=== PATIENT | female | born 1990 | race Caucasian/White ===

== ENCOUNTER 2023-12-11 14:30 | Outpatient (OUT) | payer BC, SELFPAY ==
--- NOTE | 2023-12-11 | MR_ITS ---
[address] [address] Patient Name: MARY ACOSTA MRN: [id number] date: 1990 Sex: F Assigned Patient Location: MRI Current Patient Location: Accession/Order Number: [id number] Exam Date: 12/11/2023 14:49 Report Date: 12/14/2023 06:45 At the request of: SARAH PROCTOR Procedure: MR angio head wo/w con EXAMINATION: MR angio head wo/w con HISTORY: Vertigo, central, orthostatic hypotension, syncope COMPARISON: No relevant comparison available. TECHNIQUE: MR angiography was performed in the usual manner. Multiplanar reconstructed 2D and 3D images of the cerebral arteries were created and interpreted. FINDINGS: INTERNAL CAROTIDS: No visible stenosis or aneurysm. ANTERIOR CEREBRALS: No visible stenosis or aneurysm. MIDDLE CEREBRALS: No visible stenosis or aneurysm. POSTERIOR CEREBRALS: No visible stenosis or aneurysm. BASILAR: No visible stenosis or aneurysm. VERTEBRALS: No visible stenosis or aneurysm. OTHER: Negative with no evidence of a vascular malformation. CEREBRUM: No edema, hemorrhage, mass, acute infarction, or inappropriate atrophy. CEREBELLUM: Stable 12 x 11 x 11 mm slightly lobular lesion within superior medial aspect of right cerebellum which demonstrates slightly increased T2 signal compared to surrounding tissue. No appreciable early enhancement. BRAINSTEM: No edema, hemorrhage, mass, acute infarction, or inappropriate atrophy. CSF SPACES: Ventricles, cisterns, and sulci are appropriate for age. No hydrocephalus, subarachnoid hemorrhage, or mass. SKULL: No mass or other significant visible lesion. SINUSES: Limited views demonstrate no significant mucosal thickening or fluid. ORBITS: Limited views are unremarkable. OTHER: Negative. MR/MR angio head wo/w con IMPRESSION: 1. Stable nonspecific 12 mm mass within medial aspect of right cerebellum. Neoplasm cannot be excluded. No new findings. 2. Normal CT angiography of the brain. Electronically authenticated by: SUZANNE VIDAL Date: 12/14/2023 06:45
== END 2023-12-11 14:31 | disposition home or self-care (01) ==
PROVIDERS: PCP Nurse Practitioner Family; Visit Provider Nurse Practitioner Family
DX: H81.4 Vertigo of central origin (principal); I95.1 Orthostatic hypotension; G93.9 Disorder of brain, unspecified
CPT/HCPCS: 70546; A9575

== ENCOUNTER 2024-01-21 08:06 | Outpatient (OUT) | payer BC, SELFPAY ==
--- OUTSIDE RECORDS SUMMARY | 2024-01-21 08:13 | XMS_ITS | CCD ---
Author Organization [facility] Care Team Providers Care Plunger Machine Operator Name Role Phone Betty Crawford DO Primary Care Provider RALPH ORTIZ Admitting UnavailBETTY Dejesus Primary Care Unavailable BETTY CRAWFORD Primary Care Unavailable RALPH ORTIZ Attending UnavailRALPH Resendez Referring Unavailgalen CRAWFORD BETTY B Primary Care Unavailable RALPH ORTIZ Attending UnavailRALPH Resendez Referring Unavailgalen CRAWFORD, DR HERNÁNDEZ Consulting Unavailable TATIANNA, DR JOSE LUIS Paul Primary Care Unavailable YVETTE, DR HERNÁNDEZ Admitting Unavailable YVETTE, DR HERNÁNDEZ Attending Unavailable YOUNG, DR RAFAEL Osuna Consulting Unavailable MISC, DR RODRIGUEZ Attending Unavailable MISC, DR RODRIGUEZ Consulting Unavailable TATIANNA, DR JOSE LUIS Paul Primary Care Unavailable MISC, DR RODRIGUEZ Admitting Unavailable LIVIA MATTA Consulting Unavailable YVETTE BETTY B Primary Care Unavailable LUISA GARCIA Referring Unavailable LUISA GARCIA Attending Unavailable QUINCY العراقي Attending Unavailable YVETTE BETTY B Primary Care Unavailable MAEN CACERESSON Referring Unavailable CACERESMANETATO Referring Unavailable CACERESMANETATO Referring Unavailable MANE CACERESSON Attending Unavailable TATO CACERES Attending Unavailable YVETTE BETTY B Primary Care Unavailable RALPH ORTIZ Attending UnavailSarah Dupree Referring Unavailable Shar Mendoza II Attending Unavaila ble Shar Mendoza II Admitting Unavaila ble NO FAMILY, PHYSICIAN Primary Care Unavailable SARAH VENTURA Attending Unavailable SARAH VENTURA Referring Unavailable SARAH VENTURA Attending Unavailable DEBRA GRIFFIN Attending Unavailable JOSE LUIS CAMPUZANO Primary Care Unavailable Allergies Allergy Classification Reported Allergen(s) Allergy Type Date of Onset Reaction(s) Facility (1 source) Pollen; Translations: [POLLEN EXTRACTS] Propensity to adverse reactions to drug (disorder) 6 [facility] Repository (1 source) RAGWEED; Translations: [RAGWEED] Propensity to adverse reactions to drug (disorder) 6 [facility] Repository (1 source) ALLERGIES NOT ON FILE; Translations: [ALLERGIES NOT ON FILE] Propensity to adverse reactions (disorder) [facility] Repository Medications Current Medications Medication Drug Class(es) Dates Sig (Normalized) Sig (Original) cetirizine hydrochloride 10 mg oral tablet (1 source) Histamine-1 Receptor Antagonist Start: 07-21-2022 take 1 tablet by mouth once daily Cetirizine (Zyrtec) 10 mg Tablet Active 10 MG PO Daily July 21, 2022 1:00am meclizine hydrochloride 25 mg oral tablet (1 source) Antiemetic Start: 07-21-2022 Meclizine Active 12.5 MG PO As Directed July 21, 2022 1:00am Multivitamin (Multiple Vitamin) Tablet (1 source) Start: 08-11-2022 take 1 tablet by mouth once daily Multivitamin (Multiple Vitamin) Tablet Active 1 TAB PO Daily August 11, 2022 1:00am Problems Problem Classification Problem Date Documented Da te Episodic/Chronic Other circulatory disease (2 sources) Orthostatic hypotension; Translations: [Orthostatic hypotension] Onset: 12-13-2023 Episodic Other nervous system disorders (3 sources) Disorder of brain, unspecified; Translations: [Disorder of brain, unspecified] Onset: 08-11-2022 Chronic Other nervous system disorders (1 source) Cerebellar disorder; Translations: [Disorder of brain, unspecified] 08-11-2022 Chronic Other nutritional; endocrine; and metabolic disorders (2 sources) Body mass index (BMI) 40.0-44.9, adult; Translations: [Body mass index (BMI) 40.0-44.9, adult (Multi)] Onset: 12-13-2023 Chronic Other screening for suspected conditions (not mental disorders or infectious disease) (4 sources) Other abnormal findings on diagnostic imaging of central nervous system; Translations: [OTH ABNORMAL FIND DX 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] Onset: 07-14-2022 Episodic Residual codes; unclassified (2 sources) Other specified health status; Translations: [Other specified health status] Onset: 12-13-2023 Episodic Syncope (10 sources) Syncope and collapse; Translations: [Syncope and collapse] Onset: 02-08-2022 Episodic Results Test Name Value Interpretation Reference Range Facil ity Follow-Upon 11-27-2022 Follow-Up [id number] Mary Bashir 1990 F Date Provider Department Center 11/27/2022 Asad-TATO CACERES ONC [facility] Family History Problem Relation Age of Onset Diabetes Father Heart disease Father Family Status - Relation Status Age at Father Level of Service:[id number] MD OFFICE/OUTPATIENT ESTABLISHED LOW MDM 20-29 MIN Reason for Visit and Comments: Follow-up [336704] - MRI review Normal [facility] MR BRAIN W AND WO CONTRASTon 10-12-2022 MR BRAIN W AND WO CONTRAST MR BRAIN W AND WO CONTRAST 10/12/2022 11:19 AM CLINICAL INDICATIONS: Brain lesion, follow-up assessment, PROTOCOL: Routine multiplanar multisequence MRI of the brain prior to and following the uncomplicated administration 20 mL ProHance intravenous contrast. COMPARISON: 07/14/2022 FINDINGS: Unchanged size of 1.1 cm nonenhancing right cerebellar lesion, trace associated susceptibility/seque lae of prior hemorrhage, relative T1 hypointensity and T2 hyperintensity. No acute ischemia, no ventricular outflow obstruction. No acute intracranial hemorrhage. MR spectroscopy dictated separately. IMPRESSION: Unchanged nonenhancing right cerebellar observation, given relative temporal stability, favor sequelae of prior brain parenchymal injury [possibly sequelae of demyelination/clinic ally isolated versus radiologically isolated syndrome]. MR spectroscopy dictated separately. Electronically signed: Levy Mishra. Normal [facility] MR SPECTROSCOPYon 10-12-2022 MR SPECTROSCOPY MR SPECTROSCOPY 10/12/2022 11:23 AM CLINICAL INDICATIONS: Brain lesion, indeterminant, follow-up assessment. PROTOCOL: Planar intermediate TE spectroscopy. COMPARISON: None. FINDINGS: Intermediate [144 ms] and short [35 ms] TE multi voxel planar spectroscopy. No particularly proliferative pattern of metabolites [lesion corresponds to voxel 5, control voxel 2, 4, 8]. IMPRESSION: No proliferative pattern of metabolites to suggest aggressive neoplastic process. Electronically signed: Levy Mishra. Normal [facility] Orders Onlyon 09-06-2022 Orders Only [id number] Mary Bashir 1990 F Date Provider Department [place] 09/06/2022 TATO POON ONC [facility] Family History Problem Relation Age of Onset Diabetes Father Heart disease Father Family Status - Relation Status Age at Father Normal [facility] Office Visiton 09-05-2022 Follow-up visit [id number] Mary Bashir 1990 F Date Provider Department [place] 09/05/2022 TATO POON ONC [facility] Family History Problem Relation Age of Onset Diabetes Father Heart disease Father Family Status - Relation Status Age at Father Level of Service:[id number] MD OFFICE/OUTPATIENT NEW LOW MDM 30-44 MINUTES Reason for Visit and Comments: 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 Follow-up abnormal prior imaging. ICD-10: Dizziness Comparison: Brain MR 04/05/2022. Technique: Multiplanar T1-weighted, axial FLAIR, and susceptibility images were obtained without intravenous contrast. Following intravenous gadolinium-based contrast administration, axial T2-weighted, diffusion, and T1-weighted images (in multiple planes) were obtained. Contrast: 20 mL Dotarem Findings: No change in the rounded 10 x 10 mm diameter focus of high T2 and T2/FLAIR signal within the medial right cerebellar hemisphere which is not clearly visible on the T1-weighted sequence. This shows no evidence for enhancement. No restricted diffusion. No other or similar-appearing lesions are seen within the supratentorial aspect of the brain. No visualized white matter lesions on T2/FLAIR. There is no significant mass effect, midline shift, or evidence of intracranial hemorrhage. The ventricles are proportionate to the cerebral sulci. Normal major vascular intracranial flow-voids. Postcontrast images demonstrate no abnormal intracranial enhancement. No abnormality of the skull marrow signal. The visualized portions of paranasal sinuses, and mastoid air cells are relatively clear. The orbits are grossly unremarkable. Impression: Stable, rounded, T2 and T2/FLAIR hyperintense signal focus within the medial right cerebellar hemisphere. No associated restricted diffusion or enhancement. The finding remains nonspecific, with the differential including a low-grade neoplastic process such as astrocytoma. Sequelae of other toxic/metabolic, infectious or ischemic etiologies are also considered. There is no significant mass effect or surrounding edema. No additional supratentorial lesions to suggest a more generalized demyelinating process, although not entirely excluded. Electronically authenticated by: LIVIA MATTA Date: 2022-07-14 15:00 Normal [facility] MRI BRAIN WO CONon MRI BRAIN WO CON EXAMINATION: MRI BRAIN WO CON, 04/05/2022 10:34 AM EDT HISTORY: Syncope and collapse COMPARISON: None. TECHNIQUE: MRI of the brain was performed without IV contrast. FINDINGS: CEREBRUM: No edema, hemorrhage, mass, acute infarction, or inappropriate atrophy. CEREBELLUM: Thin, discoid 13 mm diameter area of increased T2 signal, which is isodense on T1, within medial aspect of right cerebellum. No hemorrhage, acute infarction, or inappropriate atrophy. BRAINSTEM: No edema, hemorrhage, mass, acute infarction, or inappropriate atrophy. CSF SPACES: Ventricles, cisterns, and sulci are appropriate for age. No hydrocephalus, subarachnoid hemorrhage, or mass. SKULL: No mass or other significant visible lesion. SINUSES: Limited views demonstrate no significant mucosal thickening or fluid. ORBITS: Limited views are unremarkable. OTHER: Negative. IMPRESSION: 1. Nonspecific 13 mm diameter by approximately 4 mm thick area within the right cerebellum demonstrating increased T2 signal of uncertain etiology. This area is isodense/not visible on T1 sequences. Follow-up MRI brain with contrast enhancement is recommended to evaluate enhancement characteristics. Electronically authenticated by: RAFAEL VIDAL Date: 2022-04-05 18:23 Normal [facility] Encounters Encounter Date Encounter Type Care Provider Facility Start: 12-13-2023 End: 12-13-2023 ambulatory [facility] Ambulatory Start: 11-27-2023 End: 11-27-2023 ambulatory SARAH GILLMOR Not Available Start: 10-29-2023 End: 10-29-2023 ambulatory SARAH GILLMOR Not Available Start: 10-25-2023 End: 10-25-2023 ambulatory SARAH GILLMOR Not Available Start: 10-11-2023 End: 10-11-2023 ambulatory SARAH GILLMOR Not Available Start: 08-31-2023 ambulatory BETTY B YVETTESACHIN nichole Ambulatory Start: 11-27-2022 End: 11-27-2022 ambulatory TATO CACERES [facility] Start: 10-12-2022 End: 10-13-2022 ambulatory TATO CACERES [facility] Start: 09-05-2022 ambulatory TATO CACERES [facility] Start: 08-18-2022 End: 08-19-2022 [facility] Start: 08-11-2022 End: 08-12-2022 ambulatory Sarah Ventura Facility:[facility] Start: 08-02-2022 ambulatory QUINCY العراقي Cande nichole [facility] Start: 07-21-2022 End: 07-22-2022 ambulatory [facility] Start: 07-14-2022 End: 07-15-[address] DOCTOR REYEZ Facility:[facility] Start: 04-05-2022 End: 04-06-[address] BETTY CRAWFORD Facility:[facility] Start: 02-20-2022 End: [facility]: 02-10-2022 End: 02-14-2022 ambulatory RALPH WILLIAM [facility] Start: 02-09-2022 End: 02-10-2022 ambulatory [facility] Start: 01-27-2022 Transcribe Orders Betty harris DO Work Phone: [facility] Comment on above: Syncope and collapse (Primary Dx) Procedures Date Procedure Procedure Detail Performing Clinician Start: 11-27-2022 Follow-up visit Follow-up TATO BRIGGS Plan of Treatment Date Care Activity Detail Author Start: 02-23-2022 Influenza vaccination Sequential Influenza Vaccine (#1) [facility] Start: 02-08-2022 End: 02-08-2022 Patient encounter procedure 02/08/2022 Office Visit Cardiology Betty Crawford DO [address] [place] [address] Ralph Ortiz MD [address] [place] [id number] (Iksa) [facility] Start: 2010 Hepatitis C screening Hepatitis C Screening [facility] Start: 09-04-2007 HIV screening HIV Screening [facility] Start: 2004 Depression screening using PHQ-9 (Patient Health Questionnaire 9) score Depression Screening (PHQ-2/9) [facility] Start: 09-04-1995 History and physical examination, annual for health maintenance Wellness Visit [facility] Start: 03-06-1993 COVID-19 Vaccine (#1) COVID-19 Vaccine (#1) [facility] Start: 1992 Screening for malignant neoplasm of cervix Pap Smear [facility] Start: 1992 Tetanus vaccination Tetanus: Every 10yrs [facility] Payers Date Payer Category Payer Self-pay [id number] 2015 Unknown [employer]HER [employer]/JESUS/HMO/PPO [id number] 2015-Present [phone] [address] [place] [address] [id number] 1992 Unknown [id number] [id number] 1992 Unknown [id number] [id number] 1992 Unknown [id number] [id number] 1992 Unknown [id number] 2.16.840.1.855363.3.579.2.593 1992 Unknown [id number] 2.16.840.1.922099.3.579.2.593 1992 Unknown [id number] 2.16.840.1.915173.3.579.2.903 1992 Unknown [id number] 2.16.840.1.044275.3.579.2.903 1992 Unknown [id number] 2.16.840.1.925434.3.579.2.903 1992 Unknown [id number] 2.16.840.1.257719.3.579.2.9 1992 Unknown [id number] 2.16.840.1.972583.3.579.2.9 1992 Unknown [id number] 2.16.840.1.771111.3.579.2.1259 1992 Unknown [id number] 2.16.840.1.654215.3.579.2.9 1992 Unknown [id number] 2.16.840.1.114983.3.579.2.1244 1959 Unknown [id number] Unknown [id number] [id number] Social History Date Type Detail Facility Tobacco smoking status [facility] Tobacco smoking consumption unknown [facility] Start: 1990 Sex Assigned At Not on file [facility] Start: 1990 Sex Assigned At Female F [facility] Progress note 11-27-2022 Note Date & Type Note Facility 11-27-2022 Note In person visit Chief complaint: dizziness/? hypotension CAHTO: 32 y/o woman seen before for dizzy speels and passing out from dizzy spels, no diagnosis. No headaches, been 20-30 times in the past year. Goind on for about 1-2 years, 1-2 times per month. Usually up and active when onset occurs, but mostly occurs when giving kids a bath or taking a bath, once whilst laying in bed, whilst working in garden, mostl bathroom, once laying, once sitting, once in garden- going from outsie to inside. Most of th etime, when she feels it coming, can feel heart racing, and feels that room is shifitng form side to side, lays down or sits down. MRI of brain to look at cerebellum region. Dr. 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 No changes in blood pressure. 30 day holter Ekg Tilt table Echo Eeg Saw neurology and cardiology Dr. Rafael Ovalles with [facility] cardiology - [place] and Lyn[facility]; As above No past medical history on file. Past Surgical History: Procedure Laterality Date KNEE SURGERY Right Current Outpatient Medications on File Prior to Visit Medication Sig Dispense Refill cetirizine (ZyrTEC) 10 mg tablet Take 10 mg by mouth in the morning. etonogestrel-eluting contraceptive (Nexplanon) 68 mg contraceptive implant 1 Device by implant route 1 (one) time. ibuprofen 800 mg tablet Take 800 mg by mouth every 8 (eight) hours if needed. meclizine (Antivert) 25 mg tablet TAKE 1/2 TO 1 TABLET BY MOUTH DAILY NEEDED multivitamin tablet Take 1 tablet by mouth in the morning. No current facility-administered medications on file prior to visit. Allergies Allergen Reactions Pollen Extracts Ragweed Exam; Vss Cooperative Nc/at Well developed Moderately obese Awake, alert, orientd cN intact Speech, cognition intact Motor intact Sensory intact Ambulatory Coordination intact Reflexes - deferred Review of films; I reviewed her films - there is no clear abnormality to explain her symptoms on her imaging studies There is aT2/Fllair abnormality in the right posterior fossa - this does not enhance, there is no clear evidence of edema - radiology felt this may be related to an older injury I would recommend repeat imaging in about 2 years - I do not think this lesion represents tumor - which is the same as Dr. Mishra wrote related to the spectroscopy report A/P: 32 y/o female has symptoms as described above in the CAHTO. It is undlear if this might be related to some vascular insufficiency or possibly seizure disorder. I do not believe that her symptoms are related to the minor abnormality seen on her MRI in the right cerebellum. I think she could still be having seizure or possibly vertebrobasilar insufficiency It sounds like her cardiac work-up was pretty extensive and did not show anything clear FU with me PRN or if she gets repeat imaging and wants me to review it Tato Caceres MD [facility] Progress note 09-05-2022 Note Date & Type Note Facility 09-05-2022 Note In person visit Chief complaint: brain abnormality on MRI CAHTO: 32 y/o female- referred for brain abnormality (T2 hyperintensity) on MRI - no personal history of cancer She was sent to the cancer center at [facility] - she was referred there for PET/CT of head. Dr. Crawford who is her neurologist wanted the PET head iamging. She was subsequently referred to me. She had MRI sometime last year = then in the past few months she had CT w/wout contrast. She says that she was told there is something in her right cerebellum. She gets random dizzy spells. She says they just seem to come on at any time. She can usually tell when they are coming on so that she can sit down. She will sometimes pass out due to the dizzy spells. She says intially there was concern that it might be her heart - she was sent for cardiac evaluation - echo, stress test, ekg, blood word and 30 day holter monitor - that was all negative. She has some headaches - she does have two children at home - 6/4 - both girls. Overall she does not feel more clumsy. She says realistically she feels normal most of the time. ROS: As above When the spells do happen - she does feel somewhat tired and lethargic after the spells She had EEG - says that was OK - about 30-60 minute EEG Had Tilt table test too Was told that she has some central vertigo too History reviewed. No pertinent past medical history. Past Surgical History: Procedure Laterality Date KNEE SURGERY Right Current Outpatient Medications on File Prior to Visit Medication Sig Dispense Refill cetirizine (ZyrTEC) 10 mg tablet Take 10 mg by mouth in the morning. etonogestrel-eluting contraceptive (Nexplanon) 68 mg contraceptive implant 1 Device by implant route 1 (one) time. ibuprofen 800 mg tablet Take 800 mg by mouth every 8 (eight) hours if needed. meclizine (Antivert) 25 mg tablet TAKE 1/2 TO 1 TABLET BY MOUTH DAILY NEEDED multivitamin tablet Take 1 tablet by mouth in the morning. No current facility-administered medications on file prior to visit. Allergies Allergen Reactions Pollen Extracts Ragweed Exam; BP 123/73 (BP Location: Left arm, Patient Position: Sitting) Pulse 95 Temp 37.1 ???C (98.7 ???F) Ht 1.702 m (5' 7 ) Wt 135 kg (297 lb) SpO2 99% BMI 46.52 kg/m??? Age appropriate yes family present - mother NC/AT Well developed, well nourished Mood/affect normal Awake, alert, oriented CN intact Speech intact Cognition intact Motor: normal - B UE and LE Sensory: intact to LT throughout Ambulatory Station intact Coordination intact Reflexes: - intact Review of films; I personally reviewed her films - she had a photo no her phone - the films themselves were not yet loaded into pacs There is a T2 abnormality along the medial cerebellum - just lateral to the boundary of the 4th ventricle There is no clearly associated cerebral edema There is no other lesion clearly identified A/P: 32 y/o woman - referred because her imaging showed a T2 hyperintensity in the medial cerebellum. There are no other clearly identified lesions. She does not have any personal history of cancer. I explained to her that I would not recommend biopsy of the lesion at this point. I would recommend repeat MRI w/wout contrast -a bout 3-4 months after the last MRI (which would be about 1-2 months from now). Clinically she seems about stable over time - I will order her the new MRI brain w/wout contrast and I will see her back after it is completed to review the new film and to compare it to her prior imaging. I can see her back sooner if there are any new concerns. Tato Caceres MD [facility] Clinical Note 07-25-2022 Note Date & Type Note Facility 07-25-2022 Note PROCEDURE: The details of tilt table test, benefits, possible risks and alternatives were explained to the patient. Witnessed Verbal and written informed consents were obtained. Tilt table test was performed in a quiet, comfortable room with lights dimmed. The tilt table test was performed in two stages. Patient was brought in after a fast of at least three hours before the test. Electrocardiogram recordings, heart rate and blood pressure were monitored closely. The patient was placed in the tilt table with a footplate and safety straps. The patient was tilted at 70 degrees for 35 minutes. The blood pressure was monitored at two minutes intervals. The patient tolerated the procedure well and there were no complication. FINDINGS: Dizziness - NO Syncope- NO RESULTS: negative Test [facility] Evaluation note Note Date & Type Note Facility Evaluation note Diagnosis Syncope and collapse- Primary documented in this encounter [facility] Evaluation note Note Date & Type Note Facility Evaluation note Diagnosis Syncope and collapse- Primary documented in this encounter [facility] Evaluation note Note Date & Type Note Facility Evaluation note No assessment information availa [facility] Work Phone: Reason for Referral Specialty Diagnoses / Procedures Referred By Contac t Referred To Contact Cardiology Diagnoses Syncope and collapse Betty Crawford, DO [address] [place] [address] [place] [address] Referral ID Status Reason Start Date Expiration Date V isits Requested Visits Authorized [id number] Authorized 01/27/2022 01/27/2023 1 1 Summary Purpose Family History No Family History Records Found Relationship Condition Age at Onset Recorded Date/T lidya father Heart disease Unknown family member Diabetes mellitus Unknown Diabetes mellitus Unknown Hypertension Unknown Advance Directives No Advanced Directives Records FoundNo Advanced Directives Records FoundNo Advanced Directives Records FoundNo Advanced Directives Records FoundNo Advanced Directives Records FoundNo Advanced Directives Records FoundNo Advanced Directives Records FoundNo Advanced Directives Records FoundNo Advanced Directives Records FoundNo Advanced Directives Records Found Additional Source Comments Care Teams (unrecognized sec tion and content) Plunger Machine Operator Relationship Specialty Start Date End Date Betty Crawford, DO [address] [place] [address] PCP - General Neurology 01/27/22 Plunger Machine Operator Relationship Specialty Start Date End Date Betty Crawford, DO [address] [place] [address] PCP - General Neurology 01/27/22 INFORMATION SOURCE (unrecogn ized section and content) DATE CREATED AUTHOR 02/16/2022 [facility] DATE CREATED AUTHOR AUTHOR'S ORGANIZ ATION 02/21/2022 [facility] DATE CREATED AUTHOR AUTHOR'S ORGANIZ ATION 07/19/2022 [facility] DATE CREATED AUTHOR AUTHOR'S ORGANIZ ATION 07/25/2022 [facility] DATE CREATED AUTHOR AUTHOR'S ORGANIZ ATION 08/03/2022 [facility] DATE CREATED AUTHOR AUTHOR'S ORGANIZ ATION 12/02/2022 [facility] DATE CREATED AUTHOR AUTHOR'S ORGANIZ ATION 09/02/2023 [facility] DATE CREATED AUTHOR AUTHOR'S ORGANIZ ATION 09/16/2023 [facility] DATE CREATED AUTHOR AUTHOR'S ORGANIZ ATION 11/29/2023 [facility] EPIC DATE CREATED AUTHOR AUTHOR'S ORGANIZ ATION 01/07/2024 [facility] Ambulatory Goals (unrecognized section and content) Goals may be documented in a n alternate section FOR RECORDS PERTAINING TO PATIENTS WHO ARE OR HAVE BEEN ENROLLED IN A CHEMICAL DEPENDENCY/SUBSTANCEABUSE PROGRAM, SOME INFORMATION MAY BE OMITTED. This clinical summary was aggregated from multiple sources. Caution should be exercised in using it in the provision of clinical care. This summary normalizes information from multiple sources, and as a consequence, information in this document may materially change the coding, format and clinical context of patient data. In addition, data may be omitted in some cases. CLINICAL DECISIONS SHOULD BE BASED ON THE PRIMARY CLINICAL RECORDS. [employer] [facility] provides no warranty or guarantee of the accuracy or completeness of information in this document.
== END 2024-01-21 08:07 | disposition home or self-care (01) ==
LOC: LAB 08:08
PROVIDERS: PCP Nurse Practitioner Family; Visit Provider Internal Medicine Cardiovascular Disease
DX: I95.1 Orthostatic hypotension (principal)
CPT/HCPCS: 36415; 82533

== ENCOUNTER 2024-03-31 09:39 | Emergency (ER) | payer BC, SELFPAY ==
[2024-03-31 09:42] VITALS: BP 137/90; PULSE 54; TEMP 36.7; O2SAT 98; BMI 41.1
--- NOTE | 2024-03-31 10:06 | ED_ITS ---
HPI HPI - General Adult General Chief complaint: Animal Bite Stated complaint: UPPER LEFT EXTREMITY PAIN Time Seen by Provider: 03/31/24 09:47 Source: patient Mode of arrival: walk-in Limitations: no limitations History of Present Illness HPI narrative: Patient states that on Sunday she was bit by her cat. To the back of the left hand. States that her cat is up-to-date on all immunizations, she is as well. States that her cat got scared when the dog was moved to her quickly, and jumped on her hand and bit her. States that she is notices been getting swelling, and red and warm to the back of the left hand since that time. Does not go past the wrist, or the knuckles where the fingers meet. No other complaints at this time. No fevers, chills, no difficulty using the hand. No pain deep into the hand. Related Data Home Medications ?Medication ?Instructions ?Recorded ?Confirmed No Known Home Medications 03/31/24 03/31/24 Allergies Allergy/AdvReac Type Severity Reaction Status Date / Time No Known Drug Allergies Allergy Verified 03/31/24 09:42 Opioid HPI Opioid Management Most Recent Opioid Data: No Data to Display Review of Systems ROS Narrative Negative unless otherwise stated in the HPI PFSH PFSH Social History Little interest or pleasure in doing things: not at all Feeling down, depressed, or hopeless: not at all Exam Narrative Exam Narrative: General: NAD, AAOx3, no distress Ext: No abnormal range of motion, there is a small puncture wound to the left hand to the posterior portion of the dorsum of the hand, with surrounding redness, swelling to the dorsum of the left hand, does not cross over the MCP joints, no deep swelling or pain, no signs or symptoms of compartment syndrome or deep space infection Neuro: Speech is clear and appropriate. Normal level of consciousness. Gait and coordination are normal. 5/5 strength in all extremities. Constitutional Vital Signs, click to edit/add: Last Vital Signs Temp 98.1 F 03/31/24 09:42 Pulse 54 L 03/31/24 09:42 Resp 18 03/31/24 09:42 BP 137/90 03/31/24 09:42 Pulse Ox 98 03/31/24 09:42 O2 Del Method Room Air 03/31/24 09:42 Course Vital Signs Vital signs: Vital Signs Temperature 98.1 F 03/31/24 09:42 Pulse Rate 54 L 03/31/24 09:42 Respiratory Rate 18 03/31/24 09:42 Blood Pressure 137/90 03/31/24 09:42 Pulse Oximetry 98 03/31/24 09:42 Oxygen Delivery Method Room Air 03/31/24 09:42 Temperature 98.1 F 03/31/24 09:42 Pulse Rate 54 L 03/31/24 09:42 Respiratory Rate 18 03/31/24 09:42 Blood Pressure 137/90 03/31/24 09:42 Pulse Oximetry 98 03/31/24 09:42 Oxygen Delivery Method Room Air 03/31/24 09:42 Medical Decision Making MDM Narrative Medical decision making narrative: Pt who presented today for complaints of swelling, redness and pain. Patient on exam clinically appears to have cellulitis. Given the extent of cellulitis and/or co-morbidities, I feel the patient does not require admission. Shared medical decision making was utilized. Pt is stable for a trial of PO antiobiotics as an outpatient. There was no evidence of crepitus or gangrene. Patient was given Augmentin n in the ED and discharged in stable condition. Advanced guidance has been given. Vss, pex is benign at this time. Pt to fu with pcp 1-2 days for reeval, rter should sx worsen, persist or become worrysome in any way. Pt expressed understanding and agreement with plan of care at this time. Will fu as planned. Pt stable for discharge. Discharge Plan Discharge Chief Complaint: Animal Bite Clinical Impression: Cat bite, Cellulitis Patient Disposition: Home, Self-Care Time of Disposition Decision: 10:05 Condition: Good Prescriptions / Home Meds: No Action No Known Home Medications Print Language: Bengali Instructions: Animal Bite (ED), Cellulitis (ED), Warm Compress or Soak (ED) Additional Instructions: Follow-up with your PCP in the next 1 to 2 days. Return to the emergency department should symptoms worsen or become worrisome in any way. Referrals: Farida Ventura INDUSTRIAL RELATIONS SPECIALIST [Primary Care Provider] - 1 week
[2024-03-31] MEDS: AMOXICILLIN/POT CLAV 875-125 MG TABLET 1 TAB PO (10:10)
--- OUTSIDE RECORDS SUMMARY | 2024-03-31 10:12 | XMS_ITS | CCD ---
Author Organization [facility] Care Team Providers Care Sign Hanger Supervisor Name Role Phone Betty Crawford DO Primary Care Provider RALPH ORTIZ Admitting Unavailgalen CRAWFORD, BETTY B Primary Care Unavailable BETTY CRAWFORD B Primary Care Unavailable RALPH ORTIZ Attending UnavailRALPH Resendez Referring Unavailgalen e YVETTE, BETTY B Primary Care Unavailable RALPH ORTIZ Attending UnavailRALPH Resendez Referring Unavailabl sophia CRAWFORD, DR HERNÁNDEZ Consulting Unavailable TATIANNA, DR DANA Paul Primary Care Unavailable YVETTE, DR HERNÁNDEZ Admitting Unavailable YVETTE, DR HERNÁNDEZ Attending Unavailable ZIEBER, DR RAFAEL Osuna Consulting Unavailable MISC, DR RODRIGUEZ Attending Unavailable MISC, DR RODRIGUEZ Consulting Unavailable CAMPUZANO, DR DANA Paul Primary Care Unavailable MISC, DR RODRIGUEZ Admitting Unavailable LIVIA MATTA Consulting Unavailable YVETTE, BETTY B Primary Care Unavailable LUISA GARCIA Referring Unavailable LUISA GARCIA Attending Unavailable QUINCY العراقي Attending Unavailable YVETTE, BETTY B Primary Care Unavailable MANE CACERESSON Referring Unavailable CACERES TATO Referring Unavailable CACERESMANETATO Referring Unavailable MANE CACERESSON Attending Unavailable TATO CACERES Attending Unavailable YVETTE, BETTY B Primary Care Unavailable RALPH ORTIZ Attending Unavailabl e NO FAMILY, PHYSICIAN Primary Care Provider Unava ilable MD Debra Stoll Attending Provider Debra Stoll Attending Unavailable Debra Stoll Admitting Unavailable NO FAMILY, PHYSICIAN Primary Care Unavailable SARAH PROCTOR Attending Unavailable SARAH PROCTOR Referring Unavailable SARAH PROCTOR Attending Unavailable SARAH PROCTOR Attending Unavailable DEBRA STOLL Attending Unavailable DANA CAMPUZANO Primary Care Unavailable DEBRA STOLL Attending Unavailable DEBRA STOLL Referring Unavailable DANA CAMPUZANO Primary Care Unavailable Dana Campuzano MD Primary Care Provider [phone] Allergies Allergy Classification Reported Allergen(s) Allergy Type Date of Onset Reaction(s) Facility (1 source) Pollen; Translations: [POLLEN EXTRACTS] Propensity to adverse reactions to drug (disorder) 6 [facility] (1 source) RAGWEED; Translations: [RAGWEED] Propensity to adverse reactions to drug (disorder) 6 [facility] (1 source) ALLERGIES NOT ON FILE; Translations: [ALLERGIES NOT ON FILE] Propensity to adverse reactions (disorder) [facility] Medications Current Medications Medication Drug Class(es) Dates Sig (Normalized) Sig (Original) cetirizine hydrochloride 10 mg oral tablet (3 sources) Histamine-1 Receptor Antagonist Start: 07-21-2022 take 1 tablet by mouth once daily cetirizine (ZyrTEC) 10 mg tablet Take 1 tablet (10 mg) by mouth once daily. 07/21/2022 Active etonogestrel 68 mg drug implant (1 source) Progestin etonogestrel-elu tin g contraceptive (Nexplanon) 68 mg implant implant 1 each by subdermal route 1 time. Active meclizine hydrochloride 25 mg oral tablet (3 sources) Antiemetic Start: 07-21-2022 Meclizine Active 12.5 MG PO As Directed July 21, 2022 1:00am take 1 tablet by rosana th three times daily as needed for dizziness meclizine (Antivert) 25 mg tablet Take 1 tablet (25 mg) by mouth 3 times a day as needed for dizziness. Active Multivitamin (Multiple Vitamin) Tablet (2 sources) Start: 08-11-2022 take 1 tablet by mouth once daily Multivitamin (Multiple Vitamin) Tablet Active 1 TAB PO Daily August 11, 2022 1:00am Problems Active Problems Problem Classification Problem Date Documented Da te Episodic/Chronic Conditions associated with dizziness or vertigo (1 source) Dizziness and giddiness; Translations: [Dizziness and giddiness] Onset: 01-21-2024 Episodic Other circulatory disease (2 sources) Orthostatic hypotension; Translations: [Orthostatic hypotension] Onset: 12-13-2023 03-26-2024 Episodic Other nervous system disorders (2 sources) Disorder of brain, unspecified; Translations: [Disorder of brain, unspecified] Onset: 10-12-2022 Chronic Other nervous system disorders (2 sources) Cerebellar disorder; Translations: [Disorder of brain, unspecified] 08-11-2022 Chronic Other nutritional; endocrine; and metabolic disorders (2 sources) Body mass index (BMI) 40.0-44.9, adult; Translations: [Body mass index (BMI) 40.0-44.9, adult (Multi)] Onset: 12-13-2023 Chronic Other nutritional; endocrine; and metabolic disorders (2 sources) Body mass index 40+ - severely obese; Translations: [Body mass index (BMI) 40.0-44.9, adult] Onset: 12-13-2023 03-26-2024 Chronic Other screening for suspected conditions (not mental disorders or infectious disease) (4 sources) Other abnormal findings on diagnostic imaging of central nervous system; Translations: [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] Onset: 07-14-2022 Episodic Residual codes; unclassified (2 sources) Never smoked tobacco; Translations: [Other specified health status] Onset: 12-13-2023 03-26-2024 Episodic Past or Other Problems Problem Classification Problem Date Documented Da te Episodic/Chronic Other circulatory disease (2 sources) Orthostatic hypotension; Translations: [Orthostatic hypotension] Onset: 12-13-2023 Episodic Residual codes; unclassified (2 sources) Other specified health status; Translations: [Other specified health status] Onset: 12-13-2023 Episodic Syncope (12 sources) Syncope and collapse; Translations: [Syncope and collapse] Onset: 02-08-2022 Episodic Results Test Name Value Interpretation Reference Range Facility CA tilt table teston CA tilt table test [facility] [place] [address] Cardiology Report Signed Patient: Karen Bashir MR#: [id number] : 1990 Acct:[id number] Age/Sex: 33 / F ADM Date: 01/21/24 Loc: Room: Type: [facility] Attending Dr: Debra Stoll MD Copies to: Debra Stoll MD Ordering Provider: Debra Stoll MD Date of Service: 01/21/24 CA/CA tilt table test: syncope/near syncope REASON FOR STUDY: Recurrent episode of lightheadedness, dizziness, presyncope and syncope suggestive of neurocardiogenic syncope. PROCEDURE: The patient underwent standard head-up tilt table test. She received a total of 250 mL of normal saline. Then, the patient's blood pressure, O2 saturation and heart monitoring was established. The patient was tilted to the upright position for 20 minutes. No symptoms were recreated. The patient was given a sublingual nitroglycerin and was monitored for an additional 15 minutes. No symptoms were recreated, and the patient had normal and physiologic response to tilt maneuver and nitroglycerin administration. CONCLUSION: 1. Negative tilt table test. 2. Physiologic hemodynamic response to tilt maneuver and nitroglycerin administration. Transcribed By: SINDI 01/21/24 2238 Dictated By: Debra Stoll MD 01/21/24 1400 Signed By: 01/22/24 0940 Normal [facility] Follow-Upon 11-27-2022 Follow-Up [id number] Karen Bashir 1990 F Date Provider Department Center 11/27/2022 Asad-TATO CACERES [facility] ONC DCC Family History Problem Relation Age of Onset Diabetes Father Heart disease Father Family Status - Relation Status Age at Father Level of Service:49512 [place] OFFICE/OUTPATIENT ESTABLISHED LOW MDM 20-29 MIN Reason for Visit and Comments: Follow-up [385683] - MRI review Normal [facility] MR BRAIN W AND WO CONTRASTon 10-12-2022 MR BRAIN W AND WO CONTRAST MR BRAIN W AND WO CONTRAST 10/12/2022 11:19 AM CLINICAL INDICATIONS: Brain lesion, follow-up assessment, PROTOCOL: Routine multiplanar multisequence MRI of the brain prior to and following the uncomplicated administration 20 mL ProHance intravenous contrast. COMPARISON: 07/14/2022 FINDINGS: Unchanged size of 1.1 cm nonenhancing right cerebellar lesion, trace associated susceptibility/sequel ae of prior hemorrhage, relative T1 hypointensity and T2 hyperintensity. No acute ischemia, no ventricular outflow obstruction. No acute intracranial hemorrhage. MR spectroscopy dictated separately. 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 MR spectroscopy dictated separately. Electronically signed: Levy Mishra. Normal [facility] MR SPECTROSCOPYon 10-12-2022 MR SPECTROSCOPY MR SPECTROSCOPY [...] neoplastic process. Electronically signed: Levy Mishra. Normal [facility] Orders Onlyon 09-06-2022 Orders Only [id number] KrystenKaren 1990 F Date Provider Department Center 09/06/2022 TATO POON [facility] Family History Problem Relation Age of Onset Diabetes Father Heart disease Father Family Status - Relation Status Age at Father Normal [facility] Office Visiton 09-05-2022 Follow-up visit [id number] Karen Bashir 1990 F Date Provider Department Center 09/05/2022 TATO POON [facility] Family History Problem Relation Age of Onset Diabetes Father Heart disease Father Family Status - Relation Status Age at Father Level of Service:27394 [place] OFFICE/OUTPATIENT NEW LOW [facility] 30-44 MINUTES Reason for Visit and Comments: 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 Normal [facility] MRI BRAIN WO W CONon 023 MRI [...] by: LIVIA MATTA Date: 2022-07-14 15:00 Normal [facility] MRI BRAIN WO CONon 2 MRI BRAIN WO CON EXAMINATION: MRI BRAIN [...] by: RAFAEL VIDAL Date: 2022-04-05 18:23 Normal [facility] Vital Signs Date Time Vital Sign Value Performing Clinician Elba beckham 03-26-2024 15:42-0400 Body height 170.2 cm Debra Stoll MD Work Phone: [facility] 03-26-2024 15:42-0400 Body mass index (BMI) [Ratio] 42.32 kg/m2 Debra Stoll MD Work Phone: [facility] 03-26-2024 15:42-0400 Body weight 122.56 kg Debra Stoll MD Work Phone: [facility] 03-26-2024 15:42-0400 Diastolic blood pressure 60 mm[Hg] Debra Stoll MD Work Phone: [facility] 03-26-2024 15:42-0400 Heart rate 84 /min Debra Stoll MD Work Phone: [facility] 03-26-2024 15:42-0400 Systolic blood pressure 106 mm[Hg] Debra Stoll MD Work Phone: [facility] 01-21-2024 14:10-0400 SaO2% (BldA) [Mass fraction] 100 % PHYSICIAN NO [facility] 01-21-2024 14:06-0400 Body height 170.18 cm PHYSICIAN NO [facility] 01-21-2024 14:06-0400 Body weight 122.46 kg PHYSICIAN NO [facility] 01-21-2024 13:32-0400 Diastolic blood pressure 74 mm[Hg] PHYSICIAN NO [facility] 01-21-2024 13:32-0400 Heart rate 82 /min PHYSICIAN NO [facility] 01-21-2024 13:32-0400 Systolic blood pressure 129 mm[Hg] PHYSICIAN NO [facility] Encounters Encounter Date Encounter Type Care Provider Facility Start: 03-26-2024 End: 03-26-2024 Office outpatient visit 15 minutes Debra Stoll MD Work Phone: [facility] Comment on above: Orthostatic hypotens ion (Primary Dx); Syncope and collapse; BMI 40.0-44.9, adult (Multi); Never smoked tobacco Start: 03-26-2024 End: 03-26-2024 ambulatory [facility] Start: 03-17-2024 End: 03-17-2024 ambulatory SARAH GILLMOR Not Available Start: 01-21-2024 End: 01-21-2024 Patient encounter procedure PHYSICIAN [facility] Work Phone: Start: 01-21-2024 End: 01-21-2024 ambulatory PHYSICIAN NO [facility] Work Phone: Start: 12-13-2023 End: 12-13-2023 ambulatory [facility] Start: 11-27-2023 End: 11-27-2023 ambulatory SARAH GILLMOR Not Available Start: 10-29-2023 End: 10-29-2023 ambulatory SARAH GILLMOR Not Available Start: 10-25-2023 End: 10-25-2023 ambulatory SARAH GILLMOR Not Available Start: 10-11-2023 End: 10-11-2023 ambulatory SARAH GILLMOR Not Available Start: 08-31-2023 ambulatory BETTY [facility] Start: 11-27-2022 End: 11-27-2022 ambulatory TATO [facility] Start: 10-12-2022 End: 10-13-2022 ambulatory TATO [facility] Start: 09-05-2022 ambulatory TATO CACERES [facility] Start: 08-18-2022 End: 08-19-2022 ambulatory TATO [facility] Start: 08-02-2022 ambulatory QUINCY العراقي [place] [facility] nichole [facility] Start: 07-21-2022 End: 07-22-2022 ambulatory BETTY CRAWFORD [facility] Start: 07-14-2022 End: 07-15-[address] DOCTOR REYEZ Facility:[facility] Start: 04-05-2022 End: 04-06-[address] BETTY CRAWFORD Facility:[facility] Start: 02-20-2022 End: 02-21-2022 ambulatory BETTY Ryan YVETTE [facility] Start: 02-10-2022 End: 02-14-2022 ambulatory RALPH [facility] Start: 02-09-2022 End: 02-10-2022 ambulatory BETTY Ryan YVETTE [facility] Start: 01-27-2022 Transcribe Orders Betty harris DO Work Phone: [facility] Comment on above: Syncope and collapse (Primary Dx) Procedures Date Procedure Procedure Detail Performing Clinician Start: 11-27-2022 Follow-up visit Follow-up TATO BRIGGS Plan of Treatment Date Care Activity Detail Author Start: 2042 Zoster Vaccines (1 of 2) Zoster Vaccines (1 of 2) [facility] Start: 05-14-2028 DTaP/Tdap/Td Vaccines (3 - Td or Tdap) DTaP/Tdap/Td Vaccines (3 - Td or Tdap) [facility] Start: 10-08-2024 End: 10-08-2024 Patient encounter procedure 10/08/2024 3:00 PM EDT Office Visit [facility] [address] [facility] [address] [place] [address] Debra Stoll MD [address] [facility] [address] [place] [address] [facility] Start: 02-24-2024 COVID-19 Vaccine ( season) COVID-19 Vaccine ( season) [facility] Start: 02-24-2024 Influenza vaccination Influenza Vaccine (#1) [facility] Start: 02-23-2022 Influenza vaccination Sequential Influenza Vaccine (#1) [facility] Start: 02-08-2022 End: 02-08-2022 Patient encounter procedure 02/08/2022 Office Visit Cardiology Yvette Betty Connor, DO [address] [place] [id number] Ralph Ortiz MD [address] [address] [facility] Start: 2013 Screening for malignant neoplasm of cervix [facility] Start: 09-04-2011 Hepatitis B Vaccines (1 of 3 - 19+ 3-dose series) Hepatitis B Vaccines (1 of 3 - 19+ 3-dose series) [facility] Start: 2010 Hepatitis C screening Hepatitis C Screening [facility] Start: 09-04-2007 HIV screening HIV Screening [facility] Start: 2005 Varicella vaccination Varicella Vaccines (1 of 2 - 13+ 2-dose series) [facility] Start: 2004 Depression screening using PHQ-9 (Patient Health Questionnaire 9) score Depression Screening (PHQ-2/9) [facility] Start: 09-04-1995 History and physical examination, annual for health maintenance Wellness Visit [facility] Start: 1993 MMR Vaccines (1 of 1 - Standard series) MMR Vaccines (1 of 1 - Standard series) [facility] Start: 03-06-1993 COVID-19 Vaccine (#1) COVID-19 Vaccine (#1) [facility] Start: 1992 HIV screening HIV Screening [facility] Start: 1992 Lipid panel Lipid Panel [facility] Start: 1992 Screening for malignant neoplasm of cervix Pap Smear [facility] Start: 1992 Tetanus vaccination Tetanus: Every 10yrs [facility] Start: 1992 Yearly Adult Physical Yearly Adult Physical [facility] Immunizations Immunization Date Immunization Notes Care Provider Fa cility 04-08-2018 influenza virus vaccine, unspecified formulation Debra Stoll MD Work Phone: [facility] Work Phone: Payers Date Payer Category Payer Self-pay [id number] 2015 Unknown [id number] 1990 Unknown [id number] 2.16. [id number] 1992 Unknown [id number] 2.16. [id number] 1992 Unknown [id number] 2.16. [id number] 1992 Unknown [id number] 2.16.84 [id number] 1992 Unknown [id number] 2.16.84 0.1.158299.3.579.2.593 1992 Unknown [id number] 2.16. [id number] 1992 Unknown [id number] 2.16. 840.1.825465.3.579.2.903 1992 Unknown [id number] 2.16. 840.1.648988.3.579.2.903 1992 Unknown [id number] 2.16.84 0.1.729206.3.579.2.1259 1992 Unknown [id number] 2.16.84 0.1.257365.3.579.2.1259 1992 Unknown [id number] 2.16.84 0.1.775600.3.579.2.1259 1992 Unknown [id number] 2.16.84 0.1.463574.3.579.2.1259 1992 Unknown [id number] 2.16.84 0.1.458380.3.579.2.1259 1992 Unknown [id number] 2.16. 840.1.123125.3.579.2.1244 1992 Unknown [id number] 2.16.8 40.1.553922.3.579.2.1244 1959 Unknown [id number] Unknown [id number] 2.16.8 [id number] Social History Date Type Detail Facility Tobacco smoking stat us NHIS Tobacco smoking consumption unknown [facility] Start: 1990 Sex Assigned At Not on file [facility] Start: 1990 Sex Assigned At Female F [facility] Start: 08-11-2022 End: 12-13-2023 Tobacco smoking status NHIS Never smoked tobacco (finding) [facility] Start: 12-13-2023 Tobacco use and exposure Smokeless tobacco non-user [facility] Work Phone: Start: 03-26-2024 Alcoholic beverage intake Current drinker of alcohol (finding) [facility] Work Phone: Start: 12-13-2023 History of Social function [facility] Work Phone: Start: 12-13-2023 [facility] Work Phone: Start: 12-13-2023 Alcohol Comment social [facility] Work Phone: Start: 03-16-2024 End: 03-26-2024 Exposure to SARS-CoV-2 (event) Not sure [facility] History of Present illness Narrative 03-26-2024 Debra Stoll MD - 03/26/2024 3:40 PM EDT Note Date & Type Note Facility 03-26-2024 History of Present illness Narrative Subjective Karen Bashir is a 33 y.o. female Chief Complaint Follow-up HPI Patient is here for follow-up continue management for recent evaluation for symptoms of orthostatic hypotension, obesity. She was referred for a tilt table test which turned out to be negative. Patient was advised to increase fluid and salt intake and she reports some improvement of her symptoms since the last time I saw her she had 1 brief episode. She denies syncope. She underwent thorough neuro evaluation. She report 1 episode in the past that occurred while she is laying down. Conclusion 1. Symptoms of orthostatic hypotension, presyncope and even a few syncopal episode in the past. She underwent extensive neurologic and cardiac evaluation in the past which appears to be negative. Her recent tilt table test was negative. Her symptoms seem to have improved with increasing fluid and salt intake 2. Obesity Plan 1. I reviewed the patient results of her diagnostic testing at length including her tilt table test 2. I continue to encourage limiting high fluid and salt intake 3. I advised advised her to continue with conservative management if she had any episode in the future especially sitting down or laying down we will consider implantable loop recorder Review of Systems All other systems reviewed and are negative. Vitals: 03/26/24 1542 BP: 106/60 BP Location: Left arm Patient Position: Sitting Pulse: 84 Weight: 123 kg (270 lb 3.2 oz) Height: 1.702 m (5' 7 ) Objective Physical Exam Constitutional: Appearance: Normal appearance. HENT: Nose: Nose normal. Neck: Vascular: No carotid bruit. Cardiovascular: Rate and Rhythm: Normal rate. Pulses: Normal pulses. Heart sounds: Normal heart sounds. Pulmonary: Effort: Pulmonary effort is normal. Abdominal: General: Bowel sounds are normal. Palpations: Abdomen is soft. Musculoskeletal: General: Normal range of motion. Cervical back: Normal range of motion. Right lower leg: No edema. Left lower leg: No edema. Skin: General: Skin is warm and dry. Neurological: General: No focal deficit present. Mental Status: She is alert. Psychiatric: Mood and Affect: Mood normal. Behavior: Behavior normal. Thought Content: Thought content normal. Judgment: Judgment normal. Allergies Patient has no known allergies. Current Medications Current Outpatient Medications: cetirizine (ZyrTEC) 10 mg tablet, Take 1 tablet (10 mg) by mouth once daily., Disp: , Rfl: etonogestrel-eluting contraceptive (Nexplanon) 68 mg implant implant, 1 each by subdermal route 1 time., Disp: , Rfl: meclizine (Antivert) 25 mg tablet, Take 1 tablet (25 mg) by mouth 3 times a day as needed for dizziness., Disp: , Rfl: Assessment/Plan 1. Orthostatic hypotension 2. Syncope and collapse Follow Up In Cardiology Follow Up In Cardiology 3. BMI 40.0-44.9, adult (Multi) 4. Never smoked tobacco Scribe Attestation By signing my name below, I, Belgica Smith LPN attest that this documentation has been prepared under the direction and in the presence of Debra Stoll MD. Provider Attestation - Scribe documentation All medical record entries made by the Scribe were at my direction and personally dictated by me. I have reviewed the chart and agree that the record accurately reflects my personal performance of the history, physical exam, discussion and plan. documented in this encounter [facility] Work Phone: Instructions 03-26-2024 Patient Instructions Note Date & Type Note Facility 03-26-2024 Instructions Ting Donaldson LPN - 03/26/2024 3:40 PM EDT Please bring all medicines, vitamins, and herbal supplements with you when you come to the office. Prescriptions will not be filled unless you are compliant with your follow up appointments or have a follow up appointment scheduled as per instruction of your physician. Refills should be requested at the time of your visit. BMI was above normal measurement. Current weight: 123 kg (270 lb 3.2 oz) Weight change since last visit (-) denotes wt loss -8 lbs Weight loss needed to achieve BMI 25: 110.9 Lbs Weight loss needed to achieve BMI 30: 79.1 Lbs Advised to Increase physical activity. documented in this encounter [facility] Work Phone: Progress note 11-27-2022 Note Date & Type Note Facility 11-27-2022 Note In person visit Chief complaint: dizziness/? hypotension [place]: 32 y/o woman seen before for dizzy [...] neurology and cardiology Dr. Rafael Ovalles with [facility] cardiology [facility]; As above No past medical history on [...] has symptoms as described above in the [place]. It is undlear if this might be [...] me to review it Tato Caceres MD [facility] Progress note 09-05-2022 Note Date & Type Note Facility 09-05-2022 Note In person visit Chief complaint: brain abnormality on MRI [place]: 32 y/o female- referred for brain abnormality (T2 hyperintensity) on MRI - no personal history of cancer She was sent to the cancer center [facility] - she was referred there for PET/CT [...] are any new concerns. Tato Caceres MD [facility] Clinical Note 07-25-2022 Note Date & Type [...] - NO Syncope- NO RESULTS: negative Test [facility] Evaluation note Note Date & Type Note Facility Evaluation note Diagnosis Syncope and collapse- Primary documented in this encounter [facility] Evaluation note Note Date & Type Note Facility Evaluation note Diagnosis Syncope and collapse- Primary documented in this encounter [facility] Evaluation note Note Date & Type Note Facility Evaluation note No assessment information [facility] Work Phone: Evaluation note Note Date & Type Note Facility Evaluation note Diagnosis Orthostatic hypotension- Primary Syncope and collapse BMI 40.0-44.9, adult (Multi) Never smoked tobacco documented in this encounter [facility] [facility] Work Phone: Reason for referral (narrative) Consultation (Routine) - Authorized Note Date & Type Note Facility Reason for referral (narrati ve) Specialty Diagnoses / Procedures Referred By Contac t Referred To Contact Cardiology Diagnoses Syncope and collapse Procedures Follow Up In Cardiology Debra Stoll MD [address] [place] [address], [address] [address] Debra Stoll MD [address] [place] [address], [address] [address] Referral ID Status Reason Start Date Expiration Date V isits Requested Visits Authorized [id number] Authorized 03/26/2024 03/26/2025 1 1 [facility] Work Phone: Reason for Referral Specialty Diagnoses / Procedures Referred By Contac t Referred To Contact Cardiology Diagnoses Syncope and collapse Betty Crawford, DO [address] [place] [address] [facility] [place] [address] Referral ID Status Reason Start Date Expiration Date V isits Requested Visits Authorized [id number] Authorized 01/27/2022 01/27/2023 1 1 Summary Purpose Family History Relationship Condition Age at Onset Recorded Date/T lidya father Heart disease Unknown family member Diabetes mellitus Unknown Diabetes mellitus Unknown Hypertension Unknown Advance Directives Advance Directive Response Recorded Date/ Time Advance Directives No December 02 7:31am Chief Complaint and Reason for Visit Chief Complaint Syncope Additional Source Comments Care Teams (unrecognized sec tion and content) Sign Hanger Supervisor Relationship Specialty Start Date End Date Betty Crawford DO [address] [place] [address] PCP - General Neurology 01/27/22 Sign Hanger Supervisor Relationship Specialty Start Date End Date Betty Crawford DO [address] [place] [address] PCP - General Neurology 01/27/22 Team Status: Active Member Role Status Dates PHYSICIAN NO FAMILY Primary Care Provider Active Team Status: Inactive Member Role Status Dates PHYSICIAN NO FAMILY Primary Care Provider Active Start: January 21, 2024 End: January 21, 2024 Debra Stoll MD Attending Provider Active Start: January 21, 2024 End: January 21, 2024 Sign Hanger Supervisor Relationship Specialty Start Date End Date Dana Campuzano MD [address] [place] [address] [address] [place] [address] PCP - General Family Medicine 12/13/23 INFORMATION SOURCE (unrecogn ized section and content) DATE CREATED AUTHOR 02/16/2022 [facility] DATE CREATED AUTHOR AUTHOR'S ORGANIZ ATION 02/21/2022 [facility] DATE CREATED AUTHOR AUTHOR'S ORGANIZ ATION 07/19/2022 [facility] DATE CREATED AUTHOR AUTHOR'S ORGANIZ ATION 07/25/2022 [facility] DATE CREATED AUTHOR AUTHOR'S ORGANIZ ATION 08/03/2022 [facility] DATE CREATED AUTHOR AUTHOR'S ORGANIZ ATION 12/02/2022 [facility] DATE CREATED AUTHOR AUTHOR'S ORGANIZ ATION 09/02/2023 [facility] DATE CREATED AUTHOR AUTHOR'S ORGANIZ ATION 01/26/2024 [facility] DATE CREATED AUTHOR AUTHOR'S ORGANIZ ATION 03/19/2024 [facility] DATE CREATED AUTHOR AUTHOR'S ORGANIZ ATION 03/28/2024 [facility] Ambulatory Goals (unrecognized section and content) Goals may be documented in a n alternate sectionGoals may be documented in an alternate section Reason for Visit (unrecogniz ed section and content) Reason Comments Follow-up Tilt results Specialty Diagnoses / Procedures Referred By Macie t Referred To Contact Cardiology Diagnoses Syncope and collapse Procedures Follow Up In Cardiology Debra Stoll MD [address] [place] [address] 2, [address] [address] Debra Stoll MD [address] [place] [address] 2, [address] [address] Referral ID Status Reason Start Date Expiration Date V isits Requested Visits Authorized [id number] Authorized 12/13/2023 12/12/2024 1 1 FOR RECORDS PERTAINING TO PATIENTS WHO ARE [...] BE BASED ON THE PRIMARY CLINICAL RECORDS. [employer] provides no warranty or guarantee of the accuracy or completeness of information in this document.
== END 2024-03-31 10:11 | disposition home or self-care (01) ==
PROVIDERS: Emergency Provider Emergency Medicine; PCP Nurse Practitioner Family
DX: S61.452A Open bite of left hand, initial encounter (principal); L03.114 Cellulitis of left upper limb; W55.01XA Bitten by cat, initial encounter
CPT/HCPCS: 99283